=== PATIENT | male | born 1955 | race Caucasian/White ===

== ENCOUNTER 2025-04-05 14:32 | Observation (INO) ==
[2025-04-05] MEDS ORDERED: LOPRESSOR INJ 5 MG AMP ONE (14:44)
[2025-04-05] MEDS: LOPRESSOR INJ 5 MG AMP IVP ONE ×2 (14:46→15:29)
[2025-04-05 14:57] LABS: MEAN PLATELET VOLUME 8.9 fL (7.4-11.0); RED CELL DISTRIBUTION WIDTH 14.4 % (11.6-16.5)
[2025-04-05 15:01] LABS: INR 1.18 (0.8-1.3)
[2025-04-05 15:15] LABS: COR CA(FOR HYPOALB) 9.0 mg/dL (8.5-10.1); COR NA(FOR HYPERGLY) 142 mmol/L (136-145); CREATININE 1.37 mg/dL (0.70-1.30); TSH (3RD GENERATION) 0.158 uIU/mL (0.358-3.74); eGFR NON BLACK RACES 55 (>60)
--- NOTE | 2025-04-05 15:21 | DR.GENAD ---
HPI Time Seen Time Seen by Provider: 04/05/25 15:20 PCP Primary Care Physician: Polo Complaint/Symptoms Chief Complaint Doctors Comments: Patient here for therapeutic phlebotomy was noted to have elevated heart rate. Patient asymptomatic other than over the last few weeks he has noted a little bit of shortness of breath on and off. Patient was placed on monitor and noted to be in A-fib. Chief Complaint:: Patient came for Therapeutic phlebotomy and found to have a HR of 155. He denies pain, but states he has been getting mild SOB over the past few weeks with excertion. Patient placed on Monitor and revealed AFIB COVID-19 Coronavirus risk:travel/contact w/high risk person: No Has patient experienced Coronavirus symptoms: No Source History Provided: Patient Mode of Arrival Mode of Arrival: Ambulatory Timing Onset of Chief Complaint: 04/05/25 PMH PMH Past Medical History: No Past Surgical History: No Family History History of Family Medical Conditions: Yes Family Medical History: Diabetes Mellitus, Cancer, Coronary Artery Disease and Hypertension Social History Does patient currently use any type of tobacco product: No Have you used tobacco products in the last 12 months: No Type of Tobacco Use: None Does any household member use tobacco: No Alcohol Use: Rarely Do you use any recreational Drugs:: No Lives With: Spouse Lives Where: Home Travel Risk Coronavirus risk:travel/contact w/high risk person: No Has patient experienced Coronavirus symptoms: No Infectious screening In the last 2 months have you had wt loss of >10#?: NO Have you had fever, night sweats or hemotysis?: No Have you traveled outside the country in the last 6 months?: No Isolation: Standard ROS Review of Systems Constitutional: No Symptoms Reported Eyes: No Symptoms Reported ENTM: No Symptoms Reported Respiratoy: No Symptoms Reported Cardiovascular: See HPI; negative Chest Pain, Edema, Palpitations or Syncope Gastrointestinal/Abdominal: No Symptoms Reported Genitourinary: No Symptoms Reported Neurological: No Symptoms Reported Musculoskeletal: No Symptoms Reported Integumentary: No Symptoms Reported Hematologic/Lymphatic: No Symptoms Reported Endocrine: No Symptoms Reported Psychiatric: No Symptoms Reported All Other Systems: Reviewed and Negative PE Vital Signs Vitals: Vital Signs Temperature 98.2 F Pulse Rate 118 Pulse Rate 117 Pulse Rate 103 Pulse Rate 121 Pulse Rate 146 Respiratory Rate 24 Respiratory Rate 28 Respiratory Rate 24 Respiratory Rate 27 Respiratory Rate 18 Blood Pressure 122/76 Blood Pressure 122/76 Blood Pressure 134/98 Blood Pressure 134/98 O2 Sat by Pulse Oximetry 96 COURSE Treatment Treatment: Discussed results of workup with patient. Heart rate improved during ER stay. Patient agreeable to admission. Consultation Consultation Comments: Discussed case with Dr. Russ and he is agreeable to admission. ROR Labs Reviewed Laboratory Results Reviewed?: Yes 04/05/25 14:43 04/05/25 14:43 Laboratory: WBC 7.3 X10^3/uL (3.6-10.0) 04/05/25 14:43 RBC 4.88 X10^6/uL (4.7-6.0) 04/05/25 14:43 Hgb 14.7 g/dL (13.5-18.0) 04/05/25 14:43 Hct 42.2 % (42.0-54.0) 04/05/25 14:43 MCV 86.4 fL (80.0-100.0) 04/05/25 14:43 MCH 30.1 pg (27.0-34.0) 04/05/25 14:43 MCHC 34.9 g/dL (33.0-35.0) 04/05/25 14:43 RDW 14.4 % (11.6-16.5) 04/05/25 14:43 Plt Count 208 X10^3/uL (150.0-450.0) 04/05/25 14:43 MPV 8.9 fL (7.4-11.0) 04/05/25 14:43 Neut % (Auto) 67.4 % (42.0-75.0) 04/05/25 14:43 Lymph % (Auto) 21.2 % (21.0-51.0) 04/05/25 14:43 [place] % (Auto) 8.3 % (0.0-13.0) 04/05/25 14:43 Eos % (Auto) 2.0 % (0.9-2.9) 04/05/25 14:43 Baso % (Auto) 1.1 % (0.2-1.0) H 04/05/25 14:43 Neut # (Auto) 4.9 x10^3/uL (2.2-4.8) H 04/05/25 14:43 Lymph # (Auto) 1.5 X10^3/uL (1.3-2.9) 04/05/25 14:43 [place] # (Auto) 0.6 x10^3/uL (0.3-0.8) 04/05/25 14:43 Eos # (Auto) 0.1 x10^3/uL (0.0-0.2) 04/05/25 14:43 Baso # (Auto) 0.1 X10^3/uL (0.0-0.1) 04/05/25 14:43 Absolute Nucleated RBC 0.2 /100WBC 04/05/25 14:43 PT 15.1 SECONDS (11.8-14.3) 04/05/25 14:43 INR Target Range - 04/05/25 14:43 INR 1.18 (0.8-1.3) 04/05/25 14:43 APTT 28.7 SECONDS (22.9-36.5) 04/05/25 14:43 PTT Comment - 04/05/25 14:43 Sodium 142 mmol/L (136-145) 04/05/25 14:43 Corrected Sodium 142 mmol/L (136-145) 04/05/25 14:43 Potassium 3.9 mmol/L (3.5-5.1) 04/05/25 14:43 Chloride 106 mmol/L (98-107) 04/05/25 14:43 Carbon Dioxide 26.3 mmol/L (21-32) 04/05/25 14:43 BUN 14 mg/dL (7-18) 04/05/25 14:43 Creatinine 1.37 mg/dL (0.70-1.30) H 04/05/25 14:43 Est GFR (MDRD) Af Amer > 60 (>60) 04/05/25 14:43 Est GFR (MDRD) Non-Af 55 (>60) L 04/05/25 14:43 Glucose 120 mg/dL (65-99) H 04/05/25 14:43 Calcium 8.4 mg/dL (8.5-10.1) L 04/05/25 14:43 Corrected Calcium 9.0 mg/dL (8.5-10.1) 04/05/25 14:43 Magnesium 2.1 mg/dL (2.0-2.9) 04/05/25 14:43 Total Bilirubin 0.90 mg/dL (0.2-1.0) 04/05/25 14:43 AST 35 Units/L (15-37) 04/05/25 14:43 ALT 77 Units/L (12-78) 04/05/25 14:43 Alkaline Phosphatase 110 Units/L (46-116) 04/05/25 14:43 Creatine Kinase 56 Units/L (39-308) 04/05/25 14:43 Creatine Kinase Cancelled 04/05/25 14:43 Troponin I High Sens 11.8 ng/L (4.0-60.0) 04/05/25 14:43 Troponin I High Sens Cancelled 04/05/25 14:43 Total Protein 6.5 g/dL (6.4-8.2) 04/05/25 14:43 Albumin 3.2 g/dL (3.4-5.0) L 04/05/25 14:43 Globulin 3.3 g/dL (2.5-4.5) 04/05/25 14:43 Albumin/Globulin Ratio 1.0 Ratio (1.1-2.1) L 04/05/25 14:43 RBC Folate Cancelled 04/05/25 07:55 TSH 3rd Generation 0.158 uIU/mL (0.358-3.74) L 04/05/25 14:43 XRAY XRAY Interpreted by: Self (Chest x-ray reviewed and interpreted by myself. No acute cardiopulmonary abnormalities noted.) EKG Rate: 115 Nunda: RAD Rhythm: Afib ST: Normal Opioid Opioid Risk Tool Age (Sai box if 16-45): No History of Preadolescent Sexual Abuse: No Total: 0 Total Score Risk Category: Low Risk Copyright: [facility] predicting aberrant behaviors Discharge Plan Diagnosis Discharge Problem: Atrial fibrillation with RVR Discharge Plan Patient Disposition: ADMITTED INPATIENT Condition: Stable Prescriptions: No Action [facility] Concerns: Post Hospitalization: new medications and changes needed to prevent readmission or further decline. Pt educated and given instructions on all concerns. Plan of Treatment: Continue with present treatment and follow up plan. Pt is to keep follow up appointment as instructed and take medications as ordered. Orders to Discharge Patient Discharge Orders: Transfer (Routine); Ordered 04/05/25 Ordered By: David Schneider Follow ups/Referrals Follow ups/Referrals: [facility],None [Primary Care Provider] - 3 days Instructions Stand Alone Forms: Find Help Web Site, Post Hospital Follow Up Care Print Language: PERSIAN
--- NOTE | 2025-04-05 15:30 | EKG ---
Test Reason : afib Blood Pressure : */* mmHG Vent. Rate : 115 BPM Atrial Rate : * BPM P-R Int : * ms QRS Dur : 132 ms QT Int : 362 ms P-R-T Axes : * 93 39 degrees QTc Int : 500 ms Atrial fibrillation with rapid ventricular response Rightward axis Nonspecific intraventricular block Abnormal ECG No previous ECGs available Confirmed by Chaka Curran MD ([id number]) on 04/06/2025 7:27:04 AM Referred By: Confirmed By: Chaka Curran MD
[2025-04-05] MEDS ORDERED: TYLENOL 325 MG TAB PO PRN (18:12)
[2025-04-05] MEDS ORDERED: CONSULT PHARMACY - POTASSIUM & MAGNESIUM XX SCH (18:12)
[2025-04-05] MEDS ORDERED: TOPROL XL PO ONE (20:01)
[2025-04-05] MEDS: TOPROL XL PO SCH (20:06)
[2025-04-05 20:29] VITALS: BMI 24.4
[2025-04-06 05:04] LABS: MEAN PLATELET VOLUME 9.5 fL (7.4-11.0); RED CELL DISTRIBUTION WIDTH 14.5 % (11.6-16.5)
[2025-04-06 05:14] LABS: COR CA(FOR HYPOALB) 9.2 mg/dL (8.5-10.1); CREATININE 1.33 mg/dL (0.70-1.30); eGFR NON BLACK RACES 56 (>60)
--- NOTE | 2025-04-06 05:55 | RAD ---
PROCEDURE: Chest X-ray 1 View. HISTORY: AFIB; . TECHNIQUE: AP view. COMPARISON: None . TECHNICAL QUALITY: Satisfactory. FINDINGS: Normal size heart. Mediastinum and hilar regions show no masses or lymphadenopathy. Normal central vascularity. No pulmonary consolidation, masses, pleural fluid, or pneumothorax. No acute bony abnormality. IMPRESSION: No evidence of active cardiopulmonary disease. THIS IS AN ELECTRONICALLY VERIFIED FINAL REPORT 04/06/2025 5:51 AM - Electronically signed by Donaldo Avina MD
[2025-04-06] MEDS ORDERED: TOPROL XL PO ONE (09:31)
[2025-04-06] MEDS: ELIQUIS PO SCH (09:32)
[2025-04-06] MEDS: TOPROL XL PO SCH (09:32)
[2025-04-06 12:00] VITALS: O2SAT 96
[2025-04-06 14:13] VITALS: BP 122/58; PULSE 96; RESP 25; TEMP 98
== END 2025-04-06 13:50 | disposition home or self-care (01) ==
LOC: ICU 14:32 → ER 14:32 → ICU 18:00
PROVIDERS: ADMIT Obstetrics & Gynecology Obstetrics; ATTEND Obstetrics & Gynecology Obstetrics
DX: I35.8 Other nonrheumatic aortic valve disorders; R79.89 Other specified abnormal findings of blood chemistry; I48.91 Unspecified atrial fibrillation; R94.31 Abnormal electrocardiogram [ECG] [EKG]; R94.6 Abnormal results of thyroid function studies; Z72.0 Tobacco use; E05.90 Thyrotoxicosis, unspecified without thyrotoxic crisis or storm; R06.02 Shortness of breath; R68.89 Other general symptoms and signs; I34.0 Nonrheumatic mitral (valve) insufficiency